=== PATIENT | female | born 1950 | race African-American/Black ===

== ENCOUNTER → 2018-10-15 | Outpatient (CLI) | payer MEDICARE, OTHER ==
--- NOTE | 2018-10-15 13:32 | RADIOLOGY REPORT (SQ) ---
EXAM DESCRIPTION: MRI PELVIS COMBO COMPLETED DATE/TIME: 10/15/2018 12:14 pm REASON FOR STUDY: L73.2 HIDRADENITIS SUPPURATIVA L73.2 HIDRADENITIS SUPPURATIVA COMPARISON: None. TECHNIQUE: Multiplanar multisequence imaging performed without and with contrast including axial, sa gittal and coronal T2, axial T, axial gradient fat sat T1, axial, sagittal and coronal fat sat T2 pos t contrast. CONTRAST TYPE AND DOSE: 20 mL Dotarem. RENAL FUNCTION: GFR > 60. LIMITATIONS: None. FINDINGS: BLADDER AND URETHRA: Normal. PELVIC SOFT TISSUES: Thickening and enhancement within the subcutaneous tissues of the gluteal cleft extending to the left buttock and into the left perineum. No mass or abscess. No fistula identified . UTERUS: Surgically absent. RIGHT OVARY: Not visualized. LEFT OVARY: Not visualized. FREE FLUID: None. PELVIC SKELETAL STRUCTURES: No abnormal marrow signal. EXTRA PELVIS SOFT TISSUES: No masses. OTHER: No other significant finding. IMPRESSION: Dermatologic involvement as described. No evidence of fistula or pelvic floor disease. TECHNICAL DOCUMENTATION: JOB ID: [id number]- All Rights Reserved Reading location - IP/workstation name: [email or web address]
== END ==
LOC: RAD 10:45
PROVIDERS: ATTEND Surgery
DX: L73.2 Hidradenitis suppurativa (principal)
CPT/HCPCS: 82565; 72197; A9576

== ENCOUNTER → 2019-10-31 | Outpatient (CLI) | payer MEDICARE ==
--- NOTE | 2019-10-31 18:29 | RADIOLOGY REPORT (SQ) ---
EXAM DESCRIPTION: CT SOFT TISSUE NECK WITH IMAGES COMPLETED DATE/TIME: 10/31/2019 10:43 am REASON FOR STUDY: LOCALIZED SWELLING, MASS AND LUMP, NECK R22.1 LOCALIZED SWELLING, MASS AND LUMP, NECK COMPARISON: None. TECHNIQUE: Post IV contrasted scanning from skull base through lung apices with review of bone, soft tissue and lung windows. Reconstructed coronal and sagittal MPR images reviewed. All images stored on PACS. All CT scanners at this facility use dose modulation, iterative reconstruction, and/or weight based d osing when appropriate to reduce radiation dose to as low as reasonably achievable (ALARA). [facility]: Dose Right [facility]: CareDose [facility]: Dose Right [facility]: Teradose 4D [facility]: Ascenergy CONTRAST TYPE AND DOSE: 75 mL Omnipaque 350- low osmolar. RENAL FUNCTION: GFR > 60. RADIATION DOSE: . LIMITATIONS: None. FINDINGS: SKULL BASE: Intact. MAJOR SALIVARY GLANDS: No solid or cystic masses. No inflammatory changes. LYMPHADENOPATHY: There are mildly prominent left cervical lymph nodes, the largest measuring 1.2 x 0. 8 cm at the level of the hyoid bone. MUCOSAL MASSES OR ASYMMETRY: There is a subcutaneous phlegmon involving the left submandibular region measuring 3.8 x 3 by 3.3 cm. No focal drainable fluid. No radiopaque foreign body. LARYNX/CORDS: No abnormal findings. VASCULAR STRUCTURES: The major vessels are patent. LUNG APICES: Clear. BONES: The phlegmon is adjacent to the left inferior mandible. There is no significant dental diseas e or evidence of osteomyelitis. Prominent bridging marginal osteophytes in the anterior cervical spi ne. No acute fracture or spinal canal stenosis. THYROID: Normal size. No masses. PARANASAL SINUSES: Clear. OTHER: No other significant finding. IMPRESSION: 1. Subcutaneous phlegmon/inflammation in the left submandibular region. No focal drainable abscess. 2. Small reactive left cervical lymph nodes. TECHNICAL DOCUMENTATION: JOB ID: [id number] Quality ID # [id number]: Final reports with documentation of one or more dose reduction techniques (e.g., Au tomated exposure control, adjustment of the mA and/or kV according to patient size, use of iterative reconstruction technique) 2010 [employer]- All Rights Reserved Reading location - IP/workstation name: [email or web address]
== END ==
LOC: RAD 10:17
PROVIDERS: ATTEND Internal Medicine
DX: R22.1 Localized swelling, mass and lump, neck (principal)
CPT/HCPCS: 70491

== ENCOUNTER → 2020-02-13 | Outpatient (CLI) | payer MEDICARE ==
--- NOTE | 2020-02-16 09:03 | RADIOLOGY REPORT (SQ) ---
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 TECHNIQUE: Post IV contrasted scanning from skull base through lung apices with review of bone, soft tissue and lung windows. Reconstructed coronal and sagittal MPR images reviewed. All images stored on PACS. All CT scanners at this facility use dose modulation, iterative reconstruction, and/or weight based d osing when appropriate to reduce radiation dose to as low as reasonably achievable (ALARA). [facility]: Dose Right [facility]: CareDose [facility]: Dose Right [facility]: Teradose 4D [facility]: [employer] CONTRAST TYPE AND DOSE: Contrast/concentration: Isovue 350.00 mmol/ml; Total Contrast Delivered: 65. 8 ml; Total Saline Delivered: 20.0 ml RENAL FUNCTION: Creatinine 0.9 milligrams/deciliter. LIMITATIONS: None. FINDINGS: SKULL BASE: Intact. MAJOR SALIVARY GLANDS: No acute gross abnormality of the parotid and submandibular glands. LYMPHADENOPATHY: The lymph node anterior to the left submandibular gland has decreased in size. MUCOSAL MASSES OR ASYMMETRY: No mucosal mass or asymmetry. LARYNX/CORDS: No abnormality. VASCULAR STRUCTURES: Patent. LUNG APICES: Clear. BONES: Bulky anterolateral osteophytes from C2 to C6. THYROID: Surgically absent. PARANASAL SINUSES: Clear. OTHER: There are surgical clips around the right IJ. The subcutaneous inflammation in the left subma ndibular region has decreased ; there is no abscess in the area. The periapical lucency around the l eft mandibular molar (image 32 of series 301) is unchanged. IMPRESSION: 1. The subcutaneous inflammation in the left submandibular region has for the most part resolved. There is no abscess in the area. 2. Bulky anterolateral osteophytes from C2 to C6. TECHNICAL DOCUMENTATION: JOB ID: [id number] Quality ID # [id number]: Final reports with documentation of one or more dose reduction techniques (e.g., Au tomated exposure control, adjustment of the mA and/or kV according to patient size, use of iterative reconstruction technique) 2010 [employer]- All Rights Reserved Reading location - IP/workstation name: [email or web address]
== END ==
LOC: RAD 08:30
PROVIDERS: ATTEND Otolaryngology
DX: K11.4 Fistula of salivary gland (principal)
CPT/HCPCS: 70491; 82565